=== PATIENT | female | born 1960 | race Caucasian/White ===

== ENCOUNTER → 2017-02-11 07:55 | Outpatient (CLI) | payer OTHER | END | disposition home or self-care (01) | LOC: D.CT 07:55 | DX: I70.213 Atherosclerosis of native arteries of extremities with intermittent claudication, bilateral legs (principal) ==

== ENCOUNTER → 2017-03-17 07:29 | Outpatient (CLI) | payer OTHER | END | disposition home or self-care (01) | LOC: D.MRI 07:29 | DX: R16.0 Hepatomegaly, not elsewhere classified (principal) ==

== ENCOUNTER 2018-08-15 14:13 | Emergency (ER) | payer OTHER ==
[~2018-08-15] VITALS: Ht 157.5 cm; Wt 70.0 kg
[2018-08-15 14:16] VITALS: Ht 157.5 cm; Wt 70.0 kg
[2018-08-15] MEDS ORDERED: THYROID MEDICATION (14:17)
[2018-08-15] MEDS ORDERED: TOPAMAX15 MG (14:17)
[2018-08-15] MEDS ORDERED: ESTRACE1 MG (14:17)
[2018-08-15 14:34] LABS: BASOPHILS 0.6 % (0-2); HEMATOCRIT 40.6 % (36.0-48.0); HEMOGLOBIN 13.8 g/dL (12-16); IMMATURE GRANULOCYTES 0.1 % (0-5); LYMPHOCYTES 30.6 % (15-50); MCH 31.8 pg (26.0-34.0); MCV 93.5 fL (80.0-100.0); MEAN PLATELET VOLUME 11.1 fL (7.4-10.4); NEUTROPHILS 59.7 % (40-80); PLATELET COUNT 322 10x3/uL (130-400); RBC 4.34 10x6/uL (4.00-5.40); RDW 13.5 % (11.5-14.5)
[2018-08-15 15:53] LABS: ALKALINE PHOSPHATASE 91 U/L (46-116); ALT (SGPT) 30 U/L (10-68); BILIRUBIN - TOTAL 0.29 mg/dL (0.2-1.3); CALC OSMOLALITY 279 mosm/kg (275-300); CARBON DIOXIDE 25.5 mmol/L (21.0-32.0); CHLORIDE - SERUM 104 mmol/L (98-107); CREATININE - SERUM 1.1 mg/dL (0.6-1.3); GLUCOSE 93 mg/dL (74-106); POTASSIUM - SERUM 3.7 mmol/L (3.5-5.1); PROTEIN - SERUM 7.5 g/dL (6.4-8.2); SODIUM 141 mmol/L (136-145); UREA NITROGEN 10 mg/dL (7-18); eGFR NON AFRICAN AMERICAN 54 mL/min (90-120)
[2018-08-15 16:03] LABS: CKMB 0.8 U/L (0.0-3.6); CREATINE KINASE 104 UL (21-215); PRO BNP 45 pg/mL (0-125); TROPONIN-I < 0.017 ng/mL (0.000-0.060)
[2018-08-15 16:37] VITALS: BP 146/83
== END 2018-08-15 16:37 | disposition home or self-care (01) ==
LOC: D.ER 14:13
PROVIDERS: Emergency Medicine
DX: R07.9 Chest pain, unspecified (principal); R20.2 Paresthesia of skin

== ENCOUNTER → 2018-10-05 08:41 | Outpatient (CLI) | payer OTHER ==
[2018-08-15 14:16] VITALS: BMI 28.2
--- NOTE | ~2018-10-05 | ST ---
PATIENT:OVI FUENTES MEDICAL RECORD: [id number] SEX: F LOCATION:[facility] ORDER #: ADMISSION DATE: 10/05/18 AGE OF PATIENT: 58 REFERRING PHYSICIAN: INTERPRETING PHYSICIAN: PRUDENCE DE MD DATE OF SERVICE: 10/05/2018 PROCEDURE: Nuclear stress test. INDICATION: Chest pain, shortness of breath, family history of coronary artery disease. DESCRIPTION OF PROCEDURE: She was exercised on standard [employer] protocol for 8 minutes, terminated due to achievement of maximum target heart rate with 33.0 mCi injected at peak stress and 11.0 mCi of sestamibi were injected for rest images. FINDINGS: Gated SPECT reveals preserved ejection fraction at 64% with good wall motioning and thickening and brightening throughout all segments. SPECT IMAGING: Cardiolite was used as myocardial perfusion agent. There is homogeneous uptake throughout all segments at rest and stress with no evidence of inducible ischemia or previous infarction. OVERALL IMPRESSION: 1. This is a normal nuclear stress test with no evidence of inducible ischemia or previous infarction. 2. Gated SPECT reveals preserved ejection fraction greater than 60%. In this patient with ongoing symptomatology, the current scan does not suggest the presence of hemodynamically significant coronary artery disease. Evaluate noncardiac etiology of chest pain. TRANSINT:[id number] Voice Confirmation ID: [id number] DOCUMENT ID: [id number] PRUDENCE DE MD at 1704 CC: [id number] DICTATION DATE: 10/06/18 1220 CORE MACHINE TENDER: 10/06/18 1336 DEP CLI 10/05/18 [id number] [place] [address]
[~2018-10-05 08:41] MED LIST: ESTRACE1 MG; THYROID MEDICATION; TOPAMAX15 MG
== END | disposition home or self-care (01) ==
LOC: D.HCCARDIO 08:41
DX: R07.89 Other chest pain (principal)